=== PATIENT | male | born 1995 ===

== ENCOUNTER 2024-03-12 08:10 | Emergency (ER) | payer SELFPAY ==
[2024-03-12 08:12] VITALS: BP 116/66; PULSE 91; RESP 18; TEMP 36.8; O2SAT 98
--- NOTE | 2024-03-12 08:35 | PC.NURSE ---
Patient to intake desk stating, I'm going to go to [facility]. I need to see a doctor soon. Patient ambulatory out of ED with steady gait and in no acute or obvious distress.
== END 2024-03-12 08:40 | disposition left against medical advice (07) ==
LOC: ANHED 08:39
DX: Z53.21 Procedure and treatment not carried out due to patient leaving prior to being seen by health care provider (principal)
CPT/HCPCS: 99199